=== PATIENT | female | born 1955 | race Caucasian/White ===

== ENCOUNTER 2024-04-14 09:03 | Inpatient (IN) | payer MEDICARE, OTHER ==
[~2024-04-14] VITALS: Ht 162.6 cm; Wt 76.8 kg
[~2024-04-14 09:03] MED LIST: AMOX500C42 PO
[2024-04-14 10:43] LABS: ALANINE AMINOTRANSFERASE 23 U/L (12-78); ALBUMIN 3.6 G/DL (3.4-5.0); ALKALINE PHOSPHATASE 86 IU/L (46-116); ANION GAP 7 (8-16); ASPARTATE AMINO TRANSFERASE 18 U/L (10-37); BILIRUBIN,TOTAL 0.9 MG/DL (0.1-1.0); CALCIUM 9.3 MG/DL (8.5-10.1); CHLORIDE 105 MMOL/L (99-107); CREATININE 1.05 MG/DL (0.40-0.90); GLUCOSE 98 MG/DL (70-104); POTASSIUM 3.5 MMOL/L (3.5-5.1); SODIUM 142 MMOL/L (135-145); TOTAL CARBON DIOXIDE 30.4 MMOL/L (24-32); TOTAL PROTEIN 7.2 G/DL (6.4-8.2); eCRCL 46 ML/MIN; eGFR 52 ML/MIN
[2024-04-14 10:50] LABS: BLOOD UREA NITROGEN 16 MG/DL (7-18); BUN/CREATININE RATIO 15.2 (10.0-20.0); PRO BRAIN NATRIURETIC PEPTIDE 956 PG/ML (0-125)
[2024-04-14] MEDS: aspirin 81mg tab.chew PO ONE (11:35)
[2024-04-14] MEDS: nitroGLYCERIN 0.4mg/hour patch TD ONE (11:36)
[2024-04-14 11:39] LABS: APTT 25 SECONDS (22-32); PROTHROMBIN TIME 10.6 SECONDS (9.0-12.0)
[2024-04-14 12:30] LABS: HEMATOCRIT 39.1 % (37.7-47.9); HEMOGLOBIN 12.6 G/DL (11.5-16.0); MEAN CORPUSCULAR HEMOGLOBIN 29.7 PG (27-31.2); MEAN CORPUSCULAR HGB CONC 32.2 % (32-36); MEAN CORPUSCULAR VOLUME 92.3 FL (81-97); PLATELET COUNT 214 X10'3 (130-400); RED BLOOD COUNT 4.24 X10'6 (3.60-4.90); RED CELL DISTRIBUTION WIDTH 13.3 % (11-16)
[2024-04-14 12:31] LABS: BASOPHILS # (AUTO) 0.1 X10'3 (0-1); BASOPHILS % 1 % (0-2); EOSINOPHILS # (AUTO) 0.2 X10'3 (0-0.9); EOSINOPHILS % (AUTO) 4 % (0-6); LYMPHOCYTES # (AUTO) 1.7 X10'3 (1.1-4.8); LYMPHOCYTES % 28 % (24-44); MONOCYTES # (AUTO) 0.4 X10'3 (0-0.9); MONOCYTES % 6 % (0-12); NEUTROPHILS # (AUTO) 3.7 X10'3 (1.8-7.7); SEGMENTED NEUTROPHILS % 61 % (36-66)
[2024-04-14] MEDS ORDERED: SYN0.088T PO (12:49)
[2024-04-14] MEDS ORDERED: ATOR20TA66 PO (12:49)
[2024-04-14] MEDS ORDERED: VENL150T3 PO (12:49)
[2024-04-14] MEDS ORDERED: CARV25TA2 PO (12:49)
[2024-04-14] MEDS ORDERED: VERA120C2 PO (12:49)
[2024-04-14] MEDS ORDERED: GABA300C PO (12:49)
[2024-04-14] MEDS ORDERED: LOSA1TAB39 PO (12:49)
[2024-04-14] MEDS ORDERED: magnesium sulf-water 2g/50mL 50 ML IV PRN (14:10)
[2024-04-14] MEDS ORDERED: magnesium Cl slow-release 64mg tablet PO PRN (14:10)
[2024-04-14] MEDS ORDERED: morphine 2 MG/ML inj. syringe IV PRN (14:10)
[2024-04-14] MEDS ORDERED: potassium Cl 20 mEq SR tablet PO PRN (14:10)
[2024-04-14] MEDS ORDERED: mag hydrox/Alum hydrox/simeth 30ml oral suspension PO PRN (14:10)
[2024-04-14] MEDS ORDERED: ondansetron/PF 4mg/2ml inj IV PRN (14:10)
[2024-04-14] MEDS ORDERED: magnesium hydroxide 30ml (MOM) UD suspension PO PRN (14:10)
[2024-04-14] MEDS ORDERED: potassium Cl 40MEQ/1/2NS 520ml 520 ML IV PRN (14:10)
[2024-04-14] MEDS ORDERED: magnesium sulf-water 4G/100mL 100 ML IV PRN (14:10)
[2024-04-14] MEDS ORDERED: metoprolol tartrate 1mg/ml inj IV PRN (15:10)
[2024-04-14] MEDS ORDERED: aminophylline 250mg/10ml inj. IV PRN (15:10)
[2024-04-14] MEDS ORDERED: nitroGLYCERIN 0.4mg SUBLingual tab SL PRN (15:10)
--- NOTE | 2024-04-14 15:43 | NUR ---
CALLED REPORT AND WAS TOLD RN WILL CALL BACK IN 10 MINS.
[2024-04-14] MEDS: gabapentin 300mg capsule PO SCH (16:00)
--- NOTE | 2024-04-14 16:15 | NUR ---
Patient states she has her own meds and took carvedilol and gabapentin earlier in the ED
[2024-04-14 16:34] VITALS: BP 127/69; PULSE 48; RESP 18; TEMP 98.3; O2SAT 97
[2024-04-14] MEDS: carVEDilol 12.5mg tablet PO SCH (17:11)
[2024-04-14 17:15] VITALS: RESP 18; O2SAT 96
[2024-04-14 18:00] VITALS: BP 132/71; PULSE 47; RESP 14; TEMP 97.7; O2SAT 98
--- NOTE | 2024-04-14 18:23 | NUR ---
Report to Roro PEGUERO
--- NOTE | 2024-04-14 18:30 | NUR ---
Patient in room [facility]TH[facility] 4020. I have received report from BRAD PEGUERO and had the opportunity to ask questions and assume patient care. I AM AWARE PATIENT TOOK HOME MEDS WHILE IN THE ED AND HR IS RESTING IN THE 40'S. WILL MONITOR PATIENT CLOSELY
[2024-04-14 20:00] VITALS: RESP 15; O2SAT 96
[2024-04-14] MEDS: K and/or MAG REPLACEMENT MC SCH (20:00)
--- NOTE | 2024-04-14 20:22 | NUR ---
89 PATIENT STATES TOOK HER HOME MEDICATIONS HOME AND RE-EDUCATED HER ON THE IMPORTANCE TO NOT TAKE HER OWN MEDS WHEN IN THE HOSPITAL IT COULD CAUSE HER HARM WHEN WE ARE UNAWARE AND TREAT HER WITH ORDERS THE MD GIVES US. STATED UNDERSTANDING AND WILL CONTINUE TO MONITOR HER FOR ANY S/S OF LOW HR OR LOW B/P. ASSMT COMPLETED, C/O HEADACHE 12/11 SO MOVED NITRO PATCH FROM HER L ANTERIOR CHEST TO HER LOWER BACK. WILL SEE IF SHE HAS SOME RELIEF FROM THE HEADACHE BY DOING THIS. CALL LIGHT IN REACH
[2024-04-14] MEDS: amoxicillin 250mg capsule PO SCH (20:58)
[2024-04-14] MEDS: docusate sod 100mg capsule PO SCH (20:58)
[2024-04-14 22:01] VITALS: BP 129/73; PULSE 49; RESP 17; TEMP 97; O2SAT 97
[2024-04-15] VITALS (13 sets, daily range): BP systolic 115–190; BP diastolic 69–126; PULSE 56–85; RESP 13–18; TEMP 97.5–98.3; O2SAT 96–98
--- NOTE | 2024-04-15 00:20 | NUR ---
Patient in room [facility]TH[facility] 4020. I have received report from Roro PEGUERO and had the opportunity to ask questions and assume patient care.
--- NOTE | 2024-04-15 00:23 | NUR ---
VERBAL REPORT GIVEN TO OSIEL PEGUERO, AND QUESTIONS ANSWERED
--- NOTE | 2024-04-15 00:40 | NUR ---
I have reviewed earlier assessment this shift, and have made minor adjustments to findings.
[2024-04-15 04:50] LABS: BASOPHILS # (AUTO) 0.1 X10'3 (0-0.2); BASOPHILS % (AUTO) 0.7 % (0-1); EOSINOPHILS # (AUTO) 0.2 X10'3 (0-0.9); EOSINOPHILS % (AUTO) 2.8 % (0-6); HEMATOCRIT 36.8 % (35.0-45.0); HEMOGLOBIN 12.1 g/dl (12.0-16.0); LYMPHOCYTES # (AUTO) 2.4 X10'3 (1.1-4.8); LYMPHOCYTES % (AUTO) 34.6 % (21-51); MEAN CORPUSCULAR HEMOGLOBIN 30.3 PG (27.0-31.0); MEAN CORPUSCULAR HGB CONC 32.8 g/dL (33.0-36.5); MEAN CORPUSCULAR VOLUME 92.3 FL (78-98); MEAN PLATELET VOLUME 8.9 FL (7.4-10.4); MONOCYTES # (AUTO) 0.5 X10'3 (0-0.9); MONOCYTES % (AUTO) 7.5 % (2-12); NEUTROPHILS # (AUTO) 3.8 X10'3 (1.8-7.7); NEUTROPHILS % (AUTO) 54.4 % (42-75); PLATELET COUNT 201 X10'3 (140-440); RED BLOOD COUNT 3.99 X10'6 (4.20-5.60); RED CELL DISTRIBUTION WIDTH 13.6 % (11.5-14.5)
[2024-04-15 05:19] LABS: ALBUMIN 3.2 G/DL (3.4-5.0); ANION GAP 6 (8-16); BLOOD UREA NITROGEN 18 MG/DL (7-18); BUN/CREATININE RATIO 19.8 (10.0-20.0); CHLORIDE 107 MMOL/L (99-107); CREATININE 0.91 MG/DL (0.40-0.90); GLUCOSE 87 MG/DL (70-104); POTASSIUM 3.5 MMOL/L (3.5-5.1); SODIUM 143 MMOL/L (135-145); THYROID STIMULATING HORMONE 3.27 ulU/ml (0.34-4.50); TOTAL CARBON DIOXIDE 30.5 MMOL/L (24-32); eCRCL 53 ML/MIN; eGFR 62 ML/MIN
--- NOTE | 2024-04-15 06:24 | NUR ---
Problems reprioritized. Patient report given, questions answered & plan of care reviewed with Teresa PEGUERO.
[2024-04-15] MEDS: HYDROchlorothiazide 25mg tablet PO SCH (08:00)
[2024-04-15] MEDS: levoTHYROXINE 88mcg tablet PO SCH (08:53)
[2024-04-15] MEDS: venlafaxine XR 75mg capsule (Q24H) PO SCH (09:56)
[2024-04-15] MEDS: atorvastatin 20mg tablet PO SCH (09:57)
[2024-04-15] MEDS: verapamil SR 120mg (sust. release) tab PO SCH (09:57)
[2024-04-15] MEDS: losartan 50mg tablet PO SCH (09:57)
[2024-04-15] MEDS: regadenoson 0.4mg/5ml syringe IV PRN (11:05)
[2024-04-15 13:28] LABS: BASOPHILS # (AUTO) 0.1 X10'3 (0-0.2); BASOPHILS % (AUTO) 0.8 % (0-1); EOSINOPHILS # (AUTO) 0.2 X10'3 (0-0.9); EOSINOPHILS % (AUTO) 2.4 % (0-6); HEMATOCRIT 38.7 % (35.0-45.0); HEMOGLOBIN 12.7 g/dl (12.0-16.0); LYMPHOCYTES # (AUTO) 2.4 X10'3 (1.1-4.8); LYMPHOCYTES % (AUTO) 37.5 % (21-51); MEAN CORPUSCULAR HEMOGLOBIN 30.4 PG (27.0-31.0); MEAN CORPUSCULAR HGB CONC 32.8 g/dL (33.0-36.5); MEAN CORPUSCULAR VOLUME 92.6 FL (78-98); MEAN PLATELET VOLUME 8.6 FL (7.4-10.4); MONOCYTES # (AUTO) 0.5 X10'3 (0-0.9); MONOCYTES % (AUTO) 7.7 % (2-12); NEUTROPHILS # (AUTO) 3.3 X10'3 (1.8-7.7); NEUTROPHILS % (AUTO) 51.6 % (42-75); PLATELET COUNT 216 X10'3 (140-440); RED BLOOD COUNT 4.18 X10'6 (4.20-5.60); RED CELL DISTRIBUTION WIDTH 13.5 % (11.5-14.5); WHITE BLOOD COUNT 6.4 X10'3 (4.5-11.0)
[2024-04-15 13:37] LABS: ALBUMIN 3.5 G/DL (3.4-5.0); ANION GAP 3 (8-16); BLOOD UREA NITROGEN 17 MG/DL (7-18); BUN/CREATININE RATIO 19.1 (10.0-20.0); CALCIUM 9.2 MG/DL (8.5-10.1); CHLORIDE 105 MMOL/L (99-107); CREATININE 0.89 MG/DL (0.40-0.90); GLUCOSE 93 MG/DL (70-104); POTASSIUM 3.3 MMOL/L (3.5-5.1); SODIUM 140 MMOL/L (135-145); TOTAL CARBON DIOXIDE 31.9 MMOL/L (24-32); eCRCL 54 ML/MIN; eGFR 63 ML/MIN
--- NOTE | 2024-04-15 18:00 | NUR ---
Patient in room [facility]TH[facility] 4020. I have received report from MARIELENA Moore and had the opportunity to ask questions and assume patient care.
--- NOTE | 2024-04-15 18:24 | NUR ---
Report to Ketty PEGUERO
[2024-04-15] MEDS: potassium Cl 20 mEq SR tablet PO PRN (19:19)
[2024-04-15] MEDS: acetaminophen 325mg tablet PO PRN (19:20)
[2024-04-15] MEDS: heparin, porcine 5000 units/ml vial SQ SCH (20:41)
[2024-04-15] MEDS: carVEDilol 12.5mg tablet PO SCH (20:41)
[2024-04-15] MEDS: amoxicillin 250mg capsule PO SCH (23:28)
[2024-04-16 06:00] VITALS: BP 128/63; PULSE 53; RESP 16; TEMP 97.7; O2SAT 97
--- NOTE | 2024-04-16 06:22 | NUR ---
Problems reprioritized. Patient report given, questions answered & plan of care reviewed with MARIELENA Florian.
[2024-04-16 07:04] LABS: BASOPHILS # (AUTO) 0.1 X10'3 (0-0.2); BASOPHILS % (AUTO) 1.3 % (0-1); EOSINOPHILS # (AUTO) 0.2 X10'3 (0-0.9); EOSINOPHILS % (AUTO) 3.4 % (0-6); HEMATOCRIT 38.3 % (35.0-45.0); HEMOGLOBIN 12.4 g/dl (12.0-16.0); LYMPHOCYTES % (AUTO) 43.3 % (21-51); MEAN CORPUSCULAR HEMOGLOBIN 29.7 PG (27.0-31.0); MEAN CORPUSCULAR HGB CONC 32.3 g/dL (33.0-36.5); MEAN CORPUSCULAR VOLUME 92.1 FL (78-98); MEAN PLATELET VOLUME 8.5 FL (7.4-10.4); MONOCYTES # (AUTO) 0.4 X10'3 (0-0.9); MONOCYTES % (AUTO) 8.4 % (2-12); NEUTROPHILS % (AUTO) 43.6 % (42-75); PLATELET COUNT 213 X10'3 (140-440); RED BLOOD COUNT 4.16 X10'6 (4.20-5.60); RED CELL DISTRIBUTION WIDTH 13.6 % (11.5-14.5); WHITE BLOOD COUNT 4.7 X10'3 (4.5-11.0)
[2024-04-16 07:17] LABS: ALBUMIN 3.2 G/DL (3.4-5.0); ANION GAP 6 (8-16); BLOOD UREA NITROGEN 18 MG/DL (7-18); CALCIUM 9.1 MG/DL (8.5-10.1); CHLORIDE 107 MMOL/L (99-107); CHOL/HDL RATIO 2.8 (0.00-4.99); CHOLESTEROL 165 MG/DL (0-200); CREATININE 0.82 MG/DL (0.40-0.90); GLUCOSE 82 MG/DL (70-104); HDL CHOLESTEROL 59 MG/DL (35-60); LDL CHOLESTEROL 79 MG/DL (50-100); POTASSIUM 3.9 MMOL/L (3.5-5.1); SODIUM 143 MMOL/L (135-145); TOTAL CARBON DIOXIDE 29.9 MMOL/L (24-32); TRIGLYCERIDES 105 MG/DL (20-135); eCRCL 58 ML/MIN; eGFR 70 ML/MIN
[2024-04-16] MEDS: acetaminophen 325mg tablet PO PRN (08:32)
[2024-04-16 10:00] VITALS: BP 159/76; PULSE 87; RESP 14; TEMP 97.8; O2SAT 96
[2024-04-16] MEDS ORDERED: CARV-50 PO (12:20)
[2024-04-16] MEDS ORDERED: ASPI-1265 PO (12:27)
== END 2024-04-16 13:51 | disposition home or self-care (01) | DRG 281 ==
LOC: ER 09:04 → ED HOLD 12:50 → ORTHO 4S 16:06
PROVIDERS: ADMIT Family Medicine; ATTEND Family Medicine
PROC: 4A02XM4 Measurement of Cardiac Total Activity, External Approach (ICD-10-PCS; principal; 2024-04-15)
PROC: 3E033HZ Introduction of Radioactive Substance into Peripheral Vein, Percutaneous Approach (ICD-10-PCS; 2024-04-15)
DX: I21.4 Non-ST elevation (NSTEMI) myocardial infarction (principal); I42.2 Other hypertrophic cardiomyopathy; I27.20 Pulmonary hypertension, unspecified; I10 Essential (primary) hypertension; E78.5 Hyperlipidemia, unspecified; F41.9 Anxiety disorder, unspecified; M54.81 Occipital neuralgia; R00.1 Bradycardia, unspecified; I34.0 Nonrheumatic mitral (valve) insufficiency; I25.10 Atherosclerotic heart disease of native coronary artery without angina pectoris; E03.9 Hypothyroidism, unspecified; R00.2 Palpitations; Z80.8 Family history of malignant neoplasm of other organs or systems; Z83.79 Family history of other diseases of the digestive system; Z80.42 Family history of malignant neoplasm of prostate; Z82.5 Family history of asthma and other chronic lower respiratory diseases; Z88.1 Allergy status to other antibiotic agents; Z79.899 Other long term (current) drug therapy; Z90.710 Acquired absence of both cervix and uterus; Z82.49 Family history of ischemic heart disease and other diseases of the circulatory system
CPT/HCPCS: 36415; 71045; 78452; 80048; 80053; 80061; 83880; 84443; 84484; 85025; 85610; 85730; 87081; 93005; 93017; 93306; 99285; A9500; G0378; J1644; J2785